=== PATIENT | female | born 1935 | race Caucasian/White ===

== ENCOUNTER → 2023-11-20 10:25 | Outpatient (REF) | payer MEDICARE, SELFPAY | LOC: RCS 10:25 | PROVIDERS: ATTENDING PHYSICIAN Internal Medicine Cardiovascular Disease; FAMILY PHYSICIAN Internal Medicine | DX: R42 Dizziness and giddiness (principal); I48.0 Paroxysmal atrial fibrillation | CPT/HCPCS: 93225; 93226 ==

== ENCOUNTER → 2023-12-12 09:23 | Outpatient (REF) | payer MEDICARE, SELFPAY ==
[2023-12-12 11:59] LABS: ALT (SGPT) 28 U/L (0-35); AST (SGOT) 41 U/L (14-36); Albumin 4.4 g/dl (3.5-5.0); Alkaline Phosphatase 78 U/L (38-126); Blood Urea Nitrogen 15 mg/dl (7-17); Calcium 9.6 mg/dl (8.4-10.2); Carbon Dioxide 28 mmol/L (22-30); Chloride 103 mmol/L (98-107); Glucose 103 mg/dl (70-99); Potassium 3.8 mmol/L (3.5-5.1); Sodium 140 mmol/L (135-145); Total Bilirubin 1.2 mg/dl (0.2-1.3); Total Protein 6.8 g/dl (6.3-8.2); eGFR > 60.00
== END ==
LOC: HWLAB 09:23
PROVIDERS: ATTENDING PHYSICIAN Internal Medicine
DX: E16.2 Hypoglycemia, unspecified (principal); R79.89 Other specified abnormal findings of blood chemistry
CPT/HCPCS: 36415; 80053

== ENCOUNTER → 2024-03-10 09:14 | Outpatient (REF) | payer MEDICARE, SELFPAY | LOC: WDC 09:14 | PROVIDERS: ATTENDING PHYSICIAN Family Medicine Geriatric Medicine; FAMILY PHYSICIAN Internal Medicine | DX: C49.A3 Gastrointestinal stromal tumor of small intestine (principal); C50.411 Malignant neoplasm of upper-outer quadrant of right female breast; Z17.0 Estrogen receptor positive status [ER+]; Z12.31 Encounter for screening mammogram for malignant neoplasm of breast; M81.0 Age-related osteoporosis without current pathological fracture | CPT/HCPCS: 77063; 77067; 77080 ==

== ENCOUNTER → 2024-03-20 10:30 | Outpatient (REF) | payer MEDICARE, SELFPAY ==
[2024-03-20 16:10] LABS: INR 1.56; PT 18.5 Sec (11.4-14.6)
== END ==
LOC: HWLAB 10:30
PROVIDERS: ATTENDING PHYSICIAN Internal Medicine Cardiovascular Disease
DX: I48.91 Unspecified atrial fibrillation (principal)
CPT/HCPCS: 85610

== ENCOUNTER → 2024-04-02 12:00 | Outpatient (REF) | payer MEDICARE, SELFPAY ==
[2024-04-02 16:05] LABS: INR 2.32; PT 25.8 Sec (11.4-14.6)
== END ==
LOC: HWLAB 12:00
PROVIDERS: ATTENDING PHYSICIAN Internal Medicine Cardiovascular Disease
DX: I48.91 Unspecified atrial fibrillation (principal)
CPT/HCPCS: 36415; 85610

== ENCOUNTER 2024-04-28 06:38 | Emergency (ER) | payer MEDICARE, SELFPAY ==
[2024-04-28 06:42] VITALS: BP 153/91
[2024-04-28 07:17] VITALS: BP 155/81
[2024-04-28 08:00] VITALS: BP 178/102
[2024-04-28 08:17] VITALS: BMI 23.1
--- NOTE | 2024-04-28 08:30 | ED.MUSCINJ ---
HPI-Injury
<Nita Moss MD, Resident - Last Filed: 04/28/24 09:00>
General
Chief Complaint: Fall
Exam Limitations: none
Time Seen by Provider: 04/28/24 07:22
Nursing documentation reviewed up to this point in time: agreed with
History of Present Illness-Injury
Initial Injury comments:
88-year-old female with past medical history of A-fib on Coumadin and metoprolol who presents after a fall episode around 5 this a.m.. She lives independently and does not use a walker to walk around. Mentions she usually gets up around this time
to have her bowel movements; this morning when she went to the bathroom she got up from the toilet seat and then felt like she needed to move her bowels again so wanted to sit down but thinks she misjudged the place where the toilet seat was and
fell in the small space between the bathroom wall and the toilet seat. Does not think she lost consciousness or felt dizzy/lightheaded at the time but was rather due to not switching the bathroom light on and being dark. She hurt her arm while
getting stuck between the wall and toilet seat resulting in abrasions and minor bleeding on the right arm. Denies nausea or vomiting.
Past History
<Nita Moss MD, Resident - Last Filed: 04/28/24 09:00>
Past History
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
ED Past Surgical History: Cardiac (Mitral valve repair paroxysmal atrial fib) and Gynecological
Social History
Tobacco: Non-smoker
Alcohol: Occasional
Personal:
Living: with family
Review of Systems
<Nita Moss MD, Resident - Last Filed: 04/28/24 09:00>
Review of Systems
Allergies reviewed?: Yes
All Other Systems: ROS reviewed and negative except as documented in HPI and ROS
Skin Exam
<Nita Moss MD, Resident - Last Filed: 04/28/24 09:00>
Abrasion
Right Arm:
Description of abrasion: superfical/clean
Phy Exam
<Nita Moss MD, Resident - Last Filed: 04/28/24 09:00>
General Physical Exam
General Presentation: well appearing and no apparent distress
Cardiovascular Exam
Cardiovascular Exam: regular rate/rhythm
Pulmonary Exam
Pulmonary Exam: lungs clear and no respiratory distress
Gastrointestinal Exam
Gastrointestinal Exam: normal bowel sounds, non tender and soft
Musculoskeletal Exam
Musculoskeletal Exam: full ROM
Skin Exam
Skin Exam: other (Abrasion with minor bleeding on right arm, Very minor abrasions on both knees)
<Nita Moss MD, Resident - Last Filed: 04/28/24 09:00>
*Critical Care Note
Total Time (30-74mins, 75-104mins- exclusive of procedures): 20
ED Attending Note
<Nita Moss MD, Resident - Last Filed: 04/28/24 09:00>
-
Portions of this chart may have been created with voice recognition software.� Occasional wrong word or��sound alike� substitutions may have occurred due to the inherent limitations of voice recognition software.
<Rohit Samuel, DO - Last Filed: 04/28/24 08:50>
ED Attending Note
Patient seen and examined by attending physician: Yes
I performed a history and physical exam of patient and discussed management with resident, I reviewed resident's note and agree with documented findings and plan of care.: Yes
ED Attending Note:
I agree with Dr. Moss's note.
Patient essentially missed the toilet while trying to sit down causing her to sustain an abrasion/skin tear to her right upper arm. No other injuries. Patient has been ambulating since the fall. Tetanus was 5 years ago. Patient does take
Coumadin but did not strike her head.
General: Awake, Alert, Oriented X3. No acute distress.
Vitals: unremarkable
Head: Atraumatic
Eyes: Pupils equal, EOMI
Throat: Airway intact, no exudates
Neck: Trachea midline
Abd: Soft, Nontender, No pulsatile mass
Neuro: Nonfocal
Skin: Warm, dry, no rash
Extremities: Range of motion intact all 4 extremities, skin tear/abrasions noted right upper arm and very minor abrasions bilateral knees
Discharge Plan
Departure
Patient Disposition: Home (Routine Discharge)
Date of Disposition: 04/28/24
Time of Disposition: 08:48
Patient with high blood pressure during this ER visit?: Yes
Condition: Good
Discharge Problem:
Skin tear
Instructions: Wound Care (DC)
Prescriptions:
No Action
multivitamin [Multi-Day] 1 EACH tablet
1 ea PO DAILY
acetaminophen [Tylenol Extra Strength] 500 MG tablet
500 mg PO PRN PRN (Reason: pain)
gabapentin 100 MG capsule
200 mg PO BID
metoprolol succinate 25 MG tablet extended release 24 hr
25 mg PO HS
amiodarone 100 MG tablet
100 mg PO SUTUTHSA
warfarin 2 MG tablet
2 mg PO SUTHFRSA
warfarin 2 MG tablet
4 mg PO MOTUWE
polyvinyl alcohol-povidon(PF) [Refresh Classic (PF)] 10 DROPS dropperette
3 drops BOTH EYES PRN PRN (Reason: DRY EYES)
calcium carbonate-vitamin D3 1 EACH tablet,chewable
0.5 ea PO QPM
L.acidoph, paracasei,B. lactis 1 EACH capsule
1 ea PO HS
amiodarone 200 MG tablet
200 mg PO MOWEFR
Referrals:
Karen Jacinto DO [Family Provider] -
[facility] -
Interventions
Interventions:
*Risk Screen - Suicide Last Done: 04/28/24 06:48
*General Assessment Last Done: 04/28/24 06:48
*Neglect/Abuse Screening Last Done: 04/28/24 06:48
*ED COVID-19 Vaccine History Last Done: 04/28/24 08:21
ED-Musculoskeletal Assessment Last Done: 04/28/24 08:17
ED- Neurological Assessment Last Done: 04/28/24 08:17
ED-Skin Assessment Last Done: 04/28/24 08:17
Discharge Date and Time
Print Language: GUINEAN
[2024-04-28 11:22] VITALS: BP 160/75
== END 2024-04-28 11:23 | disposition home or self-care (01) ==
LOC: EMR 06:38
PROVIDERS: EMERGENCY PHYSICIAN Emergency Medicine; FAMILY PHYSICIAN Family Medicine
DX: S41.111A Laceration without foreign body of right upper arm, initial encounter (principal); S80.212A Abrasion, left knee, initial encounter; S80.211A Abrasion, right knee, initial encounter; W19.XXXA Unspecified fall, initial encounter; R03.0 Elevated blood-pressure reading, without diagnosis of hypertension; I48.0 Paroxysmal atrial fibrillation; Z79.01 Long term (current) use of anticoagulants
CPT/HCPCS: 99282

== ENCOUNTER → 2024-04-30 11:51 | Outpatient (REF) | payer MEDICARE, SELFPAY | LOC: WOUND 11:51 | PROVIDERS: ATTENDING PHYSICIAN Surgery; FAMILY PHYSICIAN Family Medicine | DX: S51.801A Unspecified open wound of right forearm, initial encounter (principal); S41.101A Unspecified open wound of right upper arm, initial encounter; I48.0 Paroxysmal atrial fibrillation; Z98.890 Other specified postprocedural states; Z79.01 Long term (current) use of anticoagulants; W19.XXXA Unspecified fall, initial encounter; Y92.002 Bathroom of unspecified non-institutional (private) residence as the place of occurrence of the external cause | CPT/HCPCS: 99203 ==

== ENCOUNTER → 2024-05-07 13:12 | Outpatient (REF) | payer MEDICARE, SELFPAY ==
[2024-05-07 15:08] LABS: INR 2.63; PT 28.4 Sec (11.4-14.6)
== END ==
LOC: WOUND 13:12
PROVIDERS: ATTENDING PHYSICIAN Surgery; FAMILY PHYSICIAN Internal Medicine Cardiovascular Disease; REFERRING PHYSICIAN Family Medicine
DX: S51.801A Unspecified open wound of right forearm, initial encounter (principal); S41.101A Unspecified open wound of right upper arm, initial encounter; I48.0 Paroxysmal atrial fibrillation; Z79.01 Long term (current) use of anticoagulants; Z98.890 Other specified postprocedural states
CPT/HCPCS: 36415; 85610; 99213

== ENCOUNTER → 2024-05-14 11:20 | Outpatient (REF) | payer MEDICARE, SELFPAY | LOC: WOUND 11:20 | PROVIDERS: ATTENDING PHYSICIAN Surgery; FAMILY PHYSICIAN Family Medicine | DX: S51.801A Unspecified open wound of right forearm, initial encounter (principal); S41.101A Unspecified open wound of right upper arm, initial encounter; Z98.890 Other specified postprocedural states; Z79.01 Long term (current) use of anticoagulants; I48.0 Paroxysmal atrial fibrillation; W19.XXXA Unspecified fall, initial encounter; Y92.002 Bathroom of unspecified non-institutional (private) residence as the place of occurrence of the external cause | CPT/HCPCS: 99212 ==

== ENCOUNTER → 2024-06-04 11:32 | Outpatient (REF) | payer MEDICARE, SELFPAY ==
[2024-06-04 15:44] LABS: INR 2.25; PT 25.3 Sec (11.4-14.6)
== END ==
LOC: HWLAB 11:32
PROVIDERS: ATTENDING PHYSICIAN Internal Medicine Cardiovascular Disease; FAMILY PHYSICIAN Family Medicine
DX: Z79.01 Long term (current) use of anticoagulants (principal)
CPT/HCPCS: 36415; 85610

== ENCOUNTER → 2024-06-19 09:59 | Outpatient (REF) | payer MEDICARE, SELFPAY ==
[2024-06-19 12:46] LABS: Albumin 4.2 g/dl (3.5-5.0); Blood Urea Nitrogen 19 mg/dl (7-17); Calcium 9.3 mg/dl (8.4-10.2); Carbon Dioxide 30 mmol/L (22-30); Chloride 106 mmol/L (98-107); Glucose 67 mg/dl (70-99); Potassium 3.9 mmol/L (3.5-5.1); Sodium 146 mmol/L (135-145); eGFR > 60.00
== END ==
LOC: HWLAB 09:59
PROVIDERS: ATTENDING PHYSICIAN Internal Medicine Cardiovascular Disease; FAMILY PHYSICIAN Family Medicine
DX: I48.0 Paroxysmal atrial fibrillation (principal)
CPT/HCPCS: 80069

== ENCOUNTER → 2024-07-03 10:40 | Outpatient (REF) | payer MEDICARE, SELFPAY ==
[2024-07-03 16:25] LABS: INR 2.55; PT 27.4 Sec (11.4-14.6)
== END ==
LOC: HWLAB 10:40
PROVIDERS: ATTENDING PHYSICIAN Internal Medicine Cardiovascular Disease; FAMILY PHYSICIAN Family Medicine
DX: Z79.01 Long term (current) use of anticoagulants (principal)
CPT/HCPCS: 36415; 85610

== ENCOUNTER → 2024-08-04 10:31 | Outpatient (REF) | payer MEDICARE, SELFPAY ==
[2024-08-04 11:50] LABS: INR 2.59; PT 27.7 Sec (11.4-14.6)
== END ==
LOC: HWLAB 10:31
PROVIDERS: ATTENDING PHYSICIAN Internal Medicine Cardiovascular Disease; FAMILY PHYSICIAN Family Medicine
DX: Z79.01 Long term (current) use of anticoagulants (principal)
CPT/HCPCS: 36415; 85610

== ENCOUNTER → 2024-09-01 11:23 | Outpatient (REF) | payer MEDICARE, SELFPAY ==
[2024-09-01 16:34] LABS: INR 2.89; PT 30.2 Sec (11.4-14.6)
== END ==
LOC: HWLAB 11:23
PROVIDERS: ATTENDING PHYSICIAN Internal Medicine Cardiovascular Disease; FAMILY PHYSICIAN Family Medicine
DX: Z79.01 Long term (current) use of anticoagulants (principal)
CPT/HCPCS: 36415; 85610

== ENCOUNTER → 2024-09-22 12:04 | Outpatient (REF) | payer MEDICARE, SELFPAY ==
[2024-09-22 12:39] LABS: % Basophils 0.9 % (0-2); % Eosinophils 1.8 % (0-6); % Immature Granulocytes 0.2 % (0-0.5); % Lymphocytes 29.3 % (20.5-51.1); % Monocytes 9.6 % (1.7-9.3); % Neutrophils 58.2 % (42.2-75.2); Absolute Basophils 0.1 10^3/uL (0-0.2); Absolute Eosinophils 0.1 10^3/uL (0-0.7); Absolute Lymphocytes 1.6 10^3/uL (1.2-3.4); Absolute Monocytes 0.5 10^3/uL (0.1-0.6); Absolute Neutrophils 3.2 10^3/uL (1.4-6.5); Hematocrit 40.4 % (37.0-47.0); Hemoglobin 13.6 g/dL (12.0-16.0); Mean Corp Hgb Conc. 33.7 g/dL (33.0-37.0); Mean Corpuscular Hgb 32.2 pg (27.0-31.0); Mean Corpuscular Volume 95.7 fL (81.0-99.0); Nucleated Red Blood Cells % 0 %; Platelet Count 202 10^3/uL (130-400); Red Blood Cell Count 4.22 10^6/uL (4.20-5.40); Red Cell Dist. Width 13.3 % (11.5-14.5); White Blood Cell Count 5.5 10^3/uL (4.8-10.8)
[2024-09-22 14:12] LABS: ALT (SGPT) 28 U/L (0-35); AST (SGOT) 38 U/L (14-36); Albumin 4.8 g/dl (3.5-5.0); Alkaline Phosphatase 82 U/L (38-126); Blood Urea Nitrogen 19 mg/dl (7-17); Calcium 9.6 mg/dl (8.4-10.2); Carbon Dioxide 28 mmol/L (22-30); Chloride 101 mmol/L (98-107); Glucose 90 mg/dl (70-99); Sodium 138 mmol/L (135-145); Total Bilirubin 1.4 mg/dl (0.2-1.3); Total Protein 7.2 g/dl (6.3-8.2); eGFR > 60.00
== END ==
LOC: REG 12:04
PROVIDERS: ATTENDING PHYSICIAN Family Medicine Geriatric Medicine; FAMILY PHYSICIAN Family Medicine; REFERRING PHYSICIAN Internal Medicine Hematology & Oncology
DX: C50.411 Malignant neoplasm of upper-outer quadrant of right female breast (principal); Z17.0 Estrogen receptor positive status [ER+]; C49.A3 Gastrointestinal stromal tumor of small intestine; N63.11 Unspecified lump in the right breast, upper outer quadrant; M81.0 Age-related osteoporosis without current pathological fracture
CPT/HCPCS: 36415; 80053; 85025

== ENCOUNTER → 2024-09-25 11:52 | Outpatient (REF) | payer MEDICARE, SELFPAY | LOC: RAD 11:52 | PROVIDERS: ATTENDING PHYSICIAN Family Medicine Geriatric Medicine; FAMILY PHYSICIAN Family Medicine; REFERRING PHYSICIAN Internal Medicine Hematology & Oncology | DX: C50.411 Malignant neoplasm of upper-outer quadrant of right female breast (principal); Z17.0 Estrogen receptor positive status [ER+]; R22.1 Localized swelling, mass and lump, neck; C49.A3 Gastrointestinal stromal tumor of small intestine; N63.11 Unspecified lump in the right breast, upper outer quadrant; M81.0 Age-related osteoporosis without current pathological fracture | CPT/HCPCS: 70492; 71270; 74177; Q9967 ==

== ENCOUNTER → 2024-09-30 14:10 | Outpatient (REF) | payer MEDICARE, SELFPAY ==
[2024-09-30 14:52] LABS: INR 2.55; PT 27.9 Sec (11.4-14.6)
== END ==
LOC: REG 14:10
PROVIDERS: ATTENDING PHYSICIAN Internal Medicine Cardiovascular Disease; FAMILY PHYSICIAN Family Medicine
DX: Z79.01 Long term (current) use of anticoagulants (principal)
CPT/HCPCS: 36415; 85610

== ENCOUNTER → 2024-11-16 13:22 | Outpatient (REF) | payer MEDICARE, SELFPAY ==
[2024-11-16 14:29] LABS: INR 2.48; PT 26.8 Sec (11.4-14.6)
== END ==
LOC: REG 13:22
PROVIDERS: ATTENDING PHYSICIAN Internal Medicine Cardiovascular Disease; FAMILY PHYSICIAN Family Medicine
DX: Z79.01 Long term (current) use of anticoagulants (principal)
CPT/HCPCS: 36415; 85610

== ENCOUNTER → 2024-12-16 13:00 | Outpatient (REF) | payer MEDICARE, SELFPAY ==
[2024-12-17 15:47] LABS: INR 2.54; PT 27.8 Sec (11.4-14.6)
== END ==
LOC: REG 13:00
PROVIDERS: ATTENDING PHYSICIAN Internal Medicine Cardiovascular Disease
DX: Z79.01 Long term (current) use of anticoagulants (principal)
CPT/HCPCS: 85610

== ENCOUNTER → 2025-01-15 13:34 | Outpatient (REF) | payer MEDICARE, SELFPAY ==
[2025-01-15 14:45] LABS: INR 2.44; PT 26.5 Sec (11.4-14.6)
== END ==
LOC: REG 13:34
PROVIDERS: ATTENDING PHYSICIAN Internal Medicine Cardiovascular Disease; FAMILY PHYSICIAN Family Medicine
DX: Z79.01 Long term (current) use of anticoagulants (principal)
CPT/HCPCS: 36415; 85610

== ENCOUNTER → 2025-01-26 09:23 | Outpatient (REF) | payer MEDICARE, SELFPAY ==
[2025-01-26 12:04] LABS: Hematocrit 38.7 % (37.0-47.0); Hemoglobin 13.0 g/dL (12.0-16.0); Mean Corp Hgb Conc. 33.6 g/dL (33.0-37.0); Mean Corpuscular Volume 96.0 fL (81.0-99.0); Nucleated Red Blood Cells % 0 %; Platelet Count 190 10^3/uL (130-400); Red Cell Dist. Width 13.0 % (11.5-14.5)
[2025-01-26 12:29] LABS: ALT (SGPT) 26 U/L (0-35); AST (SGOT) 37 U/L (14-36); Albumin 4.5 g/dl (3.5-5.0); Alkaline Phosphatase 64 U/L (38-126); Blood Urea Nitrogen 13 mg/dl (7-17); Calcium 9.5 mg/dl (8.4-10.2); Carbon Dioxide 26 mmol/L (22-30); Chloride 106 mmol/L (98-107); Glucose 99 mg/dl (70-99); HDL Cholesterol 69 mg/dl; LDL Cholesterol, Calculated 64 mg/dl; Potassium 4.1 mmol/L (3.5-5.1); Sodium 140 mmol/L (135-145); Total Protein 6.7 g/dl (6.3-8.2); Very Low Density Lipoprotein 17 mg/dl (0-30); Vitamin D, 25-OH*** 49.2 ng/mL (30-80); eGFR > 60.00
[2025-01-26 13:02] LABS: Vitamin B12 478 pg/ml (239-931)
== END ==
LOC: HWLAB 09:23
PROVIDERS: ATTENDING PHYSICIAN Internal Medicine Cardiovascular Disease; FAMILY PHYSICIAN Family Medicine
DX: R60.0 Localized edema (principal); R79.89 Other specified abnormal findings of blood chemistry; I48.0 Paroxysmal atrial fibrillation; Z79.01 Long term (current) use of anticoagulants; Z13.220 Encounter for screening for lipoid disorders; G60.9 Hereditary and idiopathic neuropathy, unspecified; M81.0 Age-related osteoporosis without current pathological fracture
CPT/HCPCS: 36415; 80053; 80061; 82306; 82607; 84100; 84443; 85025

== ENCOUNTER → 2025-01-27 13:46 | Outpatient (REF) | payer MEDICARE, SELFPAY | LOC: HWRCS 13:46 | PROVIDERS: ATTENDING PHYSICIAN Internal Medicine Cardiovascular Disease; FAMILY PHYSICIAN Family Medicine | DX: Z98.890 Other specified postprocedural states (principal); I48.0 Paroxysmal atrial fibrillation; I35.1 Nonrheumatic aortic (valve) insufficiency | CPT/HCPCS: 93306 ==

== ENCOUNTER → 2025-02-12 13:24 | Outpatient (REF) | payer MEDICARE, SELFPAY ==
[2025-02-12 14:21] LABS: INR 2.21; PT 24.6 Sec (11.4-14.6)
== END ==
LOC: REG 13:24
PROVIDERS: ATTENDING PHYSICIAN Internal Medicine Cardiovascular Disease; FAMILY PHYSICIAN Family Medicine
DX: Z79.01 Long term (current) use of anticoagulants (principal)
CPT/HCPCS: 36415; 85610

== ENCOUNTER → 2025-03-11 11:22 | Outpatient (REF) | payer MEDICARE, SELFPAY | LOC: HWWDC 11:22 | PROVIDERS: ATTENDING PHYSICIAN Family Medicine Geriatric Medicine; FAMILY PHYSICIAN Family Medicine | DX: Z12.31 Encounter for screening mammogram for malignant neoplasm of breast (principal) | CPT/HCPCS: 77063; 77067 ==

== ENCOUNTER → 2025-03-15 11:59 | Outpatient (REF) | payer MEDICARE, SELFPAY ==
[2025-03-15 16:28] LABS: INR 2.11; PT 23.7 Sec (11.4-14.6)
== END ==
LOC: HWLAB 11:59
PROVIDERS: ATTENDING PHYSICIAN Internal Medicine Cardiovascular Disease; FAMILY PHYSICIAN Family Medicine
DX: I48.91 Unspecified atrial fibrillation (principal)
CPT/HCPCS: 36415; 85610

== ENCOUNTER → 2025-04-29 13:48 | Outpatient (REF) | payer MEDICARE, SELFPAY | LOC: WDC 13:48 | PROVIDERS: ATTENDING PHYSICIAN Family Medicine Geriatric Medicine; FAMILY PHYSICIAN Family Medicine | DX: R92.2 Inconclusive mammogram (principal) | CPT/HCPCS: 76641 ==

== ENCOUNTER → 2025-05-13 11:43 | Outpatient (REF) | payer MEDICARE, SELFPAY ==
[2025-05-13 15:39] LABS: INR 2.73; PT 29.3 Sec (11.4-14.6)
[2025-05-13 15:57] LABS: Albumin 4.3 g/dl (3.5-5.0); Blood Urea Nitrogen 17 mg/dl (7-17); Calcium 9.3 mg/dl (8.4-10.2); Carbon Dioxide 30 mmol/L (22-30); Chloride 105 mmol/L (98-107); Glucose 88 mg/dl (70-99); Potassium 3.7 mmol/L (3.5-5.1); Sodium 137 mmol/L (135-145); eGFR > 60.00
== END ==
LOC: HWLAB 11:43
PROVIDERS: ATTENDING PHYSICIAN Internal Medicine Cardiovascular Disease; FAMILY PHYSICIAN Family Medicine
DX: R60.0 Localized edema (principal); Z98.890 Other specified postprocedural states; I48.21 Permanent atrial fibrillation; Z79.01 Long term (current) use of anticoagulants
CPT/HCPCS: 36415; 80069; 85610

== ENCOUNTER → 2025-06-10 11:10 | Outpatient (REF) | payer MEDICARE, SELFPAY ==
[2025-06-10 13:05] LABS: INR 2.38; PT 26.4 Sec (11.4-14.6)
== END ==
LOC: HWLAB 11:10
PROVIDERS: ATTENDING PHYSICIAN Internal Medicine Cardiovascular Disease; FAMILY PHYSICIAN Family Medicine
DX: I48.0 Paroxysmal atrial fibrillation (principal)
CPT/HCPCS: 36415; 85610

== ENCOUNTER → 2025-07-08 14:44 | Outpatient (REF) | payer MEDICARE, SELFPAY ==
[2025-07-08 16:05] LABS: INR 2.48; PT 26.4 Sec (11.4-14.6)
== END ==
LOC: REG 14:44
PROVIDERS: ATTENDING PHYSICIAN Internal Medicine Cardiovascular Disease
DX: I48.0 Paroxysmal atrial fibrillation (principal)
CPT/HCPCS: 36415; 85610